=== PATIENT | male | born 1995 | race Caucasian/White ===

== ENCOUNTER → 2021-06-12 | Emergency (ER) | payer OTHER ==
[~2021-06-12] VITALS: Ht 175.3 cm; Wt 79.4 kg
--- NOTE | 2021-06-12 19:45 | NUR ---
[facility] 89 AND [employer] OTB C/O COLOSTOMY PAIN AND BEING PEPPER SPRAYED. PT A/OX4. TOLERATING R/A AT 98%
[2021-06-12 19:49] VITALS: BP 144/80
--- NOTE | 2021-06-12 21:03 | NUR ---
Patient discharged to home in stable condition. Written and verbal after care instructions given. Patient verbalizes understanding of instruction.
== END ==
LOC: ER 19:37
DX: Z02.89 Encounter for other administrative examinations (principal); Z43.3 Encounter for attention to colostomy; Z60.2 Problems related to living alone